=== PATIENT | male | born 2000 | race Caucasian/White ===

== ENCOUNTER 2021-09-16 21:53 | Inpatient (IN) ==
[2021-09-16] MEDS ORDERED: NS 1,000 ML IV 1,000 ML ONE ×2 (22:03→23:20)
[2021-09-16 22:13] VITALS: BMI 22.9
[2021-09-16] MEDS ORDERED: NS 1,000 ML IV 1,000 ML IV ONE ×2 (22:25→23:19)
[2021-09-16] MEDS ORDERED: ZOFRAN INJ 4 MG VIAL IVP ONE (22:29)
--- NOTE | 2021-09-16 22:33 | DR.HYPOGLY ---
HPI Time Seen Time Seen by Provider: 09/16/21 22:28 PCP Primary Care Physician: CHARTERTO Complaint Chief Complaint Doctors Comments: NAUSEA, VOMITING AND RAPID HEART RATE TIMES SEVERAL HOURS. POLYURIA AND POLYDYPSEA FOR FEW DAYS. NOT TAKING INSULIN INSTRUCTED AND OUT OF STRIPS TO CHECK GLUCOSE. MOM SAID PATIENT IS INCREASINGLY WEAK AND IS NOT HOLDING DOWN FLUID. Chief Complaint:: PT'S MOM STATES "HE IS IN DKA". STATES HE HAS BEEN VOMITING, CENTENO, AND HEART RACING. STATES HE DIDNT HAVE HIS STRIPS TO CHECK HIS BLOOD GLUC OSE. COVID-19 Coronavirus risk:travel/contact w/high risk person: No Has patient experienced Coronavirus symptoms: No Nurses notes reviewed Nurses Notes Review: Yes Source History Provided: Patient and Family Member Mode of Arrival Mode of Arrival: Ambulatory Timing Onset of Chief Complaint: 09/16/21 Came on: Suddenly Duration Duration: Constant Duration: Days Context Symptoms: Generalized weakness History of: Diabetes, Insulin use, Hypoglycemic episodes and Hyperglycemic episodes Prehospital care: None Associated signs and symptoms Associated signs and symptoms: Headache, Nausea and Vomiting Other History Other history: DM ON INSULIN. PMH PMH Past Medical History: Yes Past Medical History: Diabetes Past Medical History Comment: MYOCARDITIS Past Surgical History: Yes Surgical History: Tonsillectomy and Other Past Surgical History Comment: HEART CATH Family History History of Family Medical Conditions: No Social History Does any household member use tobacco: No Alcohol Use: None Do you use any recreational Drugs:: No Lives Where: Home Travel Risk Coronavirus risk:travel/contact w/high risk person: No Has patient experienced Coronavirus symptoms: No Infectious screening Have you traveled outside the country in the last 6 months?: No Isolation: Standard ROS Review of Systems Constitutional: Weakness and Fatigue; negative Fever Eyes: No Symptoms Reported and See HPI; negative Blurred Vision and Diplopia ENTM: No Symptoms Reported and See HPI; negative Nose Discharge and Nose Congestion Respiratoy: See HPI and Short of Breath; negative Moist Cough and Wheezing Cardiovascular: See HPI and Palpitations; negative Chest Pain Gastrointestinal/Abdominal: See HPI, Nausea and Vomiting; negative Abdominal Pain and Diarrhea Genitourinary: See HPI and Other (POLYURIA AND POLYDYPSEA.); negative Dysuria Neurological: See HPI and Weakness; negative Headache and Dizziness Musculoskeletal: See HPI and Muscle Pain Integumentary: See HPI and Dryness Hematologic/Lymphatic: No Symptoms Reported and See HPI; negative Easy Bruising Endocrine: See HPI, Increased Thirst and Increased Urine Psychiatric: No Symptoms Reported and See HPI All Other Systems: Reviewed and Negative PE Vital Signs Vitals: Temperature 97.9 F Pulse Rate 129 Respiratory Rate 16 Blood Pressure 128/71 O2 Sat by Pulse Oximetry 96 General Limitations: No Limitations General Appearance: Alert and In Distress (TACHYPNEA.) Eyes Eye exam: Normal Appearance and PERRL; negative Scleral Icterus and Conjunctival Injection Pupils: Regular, Round: Bilateral and Reactive: Bilateral Sclera/Conjunctival: Normal Inspection: Bilateral ENT ENT Exam: Normal Oropharynx, Normal External Ear Exam, Mucous Membranes Dry and TM's Normal Bilaterally Nose Exam: Normal Nose Exam Mouth Exam: Normal Inspection; negative Lip Swelling and Tongue Swelling Throat Exam: Normal Inspection; negative Tonsillar Erythema, Tonsillomegaly and Tonsillar Exudate Neck Neck Exam: Normal Inspection and Trachea Midline; negative Tenderness Chest Chest Inspection: Normal Inspection and Symmetric Chest Wall Rise; negative Tenderness Respiratory Respiratory Exam: Normal Lung Sounds Bilat; negative Accessory Muscle Use, Chest Wall Tenderness and Respiratory Distress Respiratory Exam: Bilateral: Clear to Auscultation Cardiovascular Cardiovascular Exam: Normal Rhythm and Tachycardia Abdominal Exam Abdominal Exam: Normal Inspection, Normal Bowel Sounds and Soft; negative Tenderness Extremities Extremities Exam: Normal Inspection and Normal Capillary Refill Back Back Exam: Normal Inspection; negative (R) CVA Tenderness and (L) CVA Tenderness Neurologic Neurological Exam: Alert and Oriented X3; negative Motor Sensory Deficit Patient Oriented To: Person, Place and Time Speech: Fluid Speech Cranial Nerve Exam: EOM Function (II, III, IV, ): Normal, Facial Sensation (V): Normal, Facial Palsy (VII): Normal, Gag reflex (XI): Normal and Tongue Deviation: Normal Motor Strength - LUE: 5/5 Motor Strength - RUE: 5/5 Motor Strength - LLE: 5/5 Motor Strength - RLE: 5/5 Upper Motor Neuron Exam: Babinski Sign: Normal Psychiatric Psychiatric Exam: Normal Affect and Anxious Skin Skin Exam: Dry MDM Additional information Additional Information Obtained From: Family Differential diagnosis Induced by: Insulin (HYPERGLYCEMIA, DKA, DEHYDRATION, ACIDOSIS.) COURSE Treatment Treatment: SEE ORDERS DONE WHILE PATIENT WAS IN ER. LABS, EKG AND XRAY DISCUSSED WITH PATIENT AND HIS FAMILY. WILL BE ADMITTED TO [facility]. Consultation Consultation Comments: DISCUSSED PATIENT WITH DR. BUSBY. HE WILL BE ADMITTED PATIENT. Education/Counseling Education/Counseling: Patient and Family Educated On: Diagnosis ROR Labs Reviewed Laboratory Results Reviewed?: Yes Result Diagrams: 09/20/21 04:07 09/20/21 04:07 Laboratory: WBC 15.2 X10^3/uL (3.6-10.0) H 09/16/21 22:41 RBC 5.83 X10^6/uL (4.7-6.0) 09/16/21 22:41 Hgb 16.7 g/dL (13.5-18.0) 09/16/21 22:41 Hct 50.1 % (42.0-54.0) 09/16/21 22:41 MCV 86.0 fL (80.0-100.0) 09/16/21 22:41 MCH 28.6 pg (27.0-34.0) 09/16/21 22:41 MCHC 33.2 g/dL (33.0-35.0) 09/16/21 22:41 RDW 12.9 % (11.6-16.5) 09/16/21 22:41 Plt Count 319 X10^3/uL (150.0-450.0) 09/16/21 22:41 MPV 8.8 fL (7.4-11.0) 09/16/21 22:41 Neut % (Auto) 89.9 % (42.0-75.0) H 09/16/21 22:41 Lymph % (Auto) 5.5 % (21.0-51.0) L 09/16/21 22:41 [place] % (Auto) 4.2 % (0.0-13.0) 09/16/21 22:41 Eos % (Auto) 0.1 % (0.9-2.9) L 09/16/21 22:41 Baso % (Auto) 0.3 % (0.2-1.0) 09/16/21 22:41 Neut # (Auto) 13.7 x10^3/uL (2.2-4.8) H 09/16/21 22:41 Lymph # (Auto) 0.8 X10^3/uL (1.3-2.9) L 09/16/21 22:41 [place] # (Auto) 0.6 x10^3/uL (0.3-0.8) 09/16/21 22:41 Eos # (Auto) 0.0 x10^3/uL (0.0-0.2) 09/16/21 22:41 Baso # (Auto) 0.0 X10^3/uL (0.0-0.1) 09/16/21 22:41 Absolute Nucleated RBC 0.0 /100WBC 09/16/21 22:41 Sodium 136 mmol/L (136-145) 09/16/21 22:41 Corrected Sodium 147 mmol/L (136-145) H 09/16/21 22:41 Potassium 5.1 mmol/L (3.5-5.1) 09/16/21 22:41 Chloride 98 mmol/L (98-107) 09/16/21 22:41 Carbon Dioxide 14.3 mmol/L (21-32) L* 09/16/21 22:41 BUN 22 mg/dL (7-18) H 09/16/21 22:41 Creatinine 1.25 mg/dL (0.70-1.30) 09/16/21 22:41 Est GFR (MDRD) Af Amer > 60 (>60) 09/16/21 22:41 Est GFR (MDRD) Non-Af > 60 (>60) 09/16/21 22:41 Glucose 539 mg/dL (65-99) H* 09/16/21 22:41 Calcium 9.9 mg/dL (8.5-10.1) 09/16/21 22:41 Corrected Calcium TNP 09/16/21 22:41 Total Bilirubin 1.00 mg/dL (0.2-1.0) 09/16/21 22:41 AST 14 Units/L (15-37) L 09/16/21 22:41 ALT 26 Units/L (12-78) 09/16/21 22:41 Alkaline Phosphatase 166 Units/L (46-116) H 09/16/21 22:41 Total Protein 8.4 g/dL (6.4-8.2) H 09/16/21 22:41 Albumin 4.9 g/dL (3.4-5.0) 09/16/21 22:41 Globulin 3.5 g/dL (2.5-4.5) 09/16/21 22:41 Albumin/Globulin Ratio 1.4 Ratio (1.1-2.1) 09/16/21 22:41 Acetone, Semi-Quant Large (NEGATIVE) H 09/16/21 22:41 XRAY XRAY Interpreted by: Radiologist (REPORT NOTED.) and Self EKG Rate: 114 [place]: Normal Rhythm: ST Block: None Hypertrophy: None ST: Inf and Ischemia Opioid Opioid Risk Tool Age (Efrain box if 16-45): Yes Total: 1 Total Score Risk Category: Low Risk Copyright: James CORREA predicting aberrant behaviors Diagnosis Discharge Problem: DKA (diabetic ketoacidosis) Qualifiers: Diabetes mellitus type: type 1 Diabetes mellitus complication detail: without coma Qualified Code(s): E10.10 - Type 1 diabetes mellitus with ketoacidosis without coma Instructions Instructions: Nausea and Vomiting, Adult, [id number] Diabetic Ketoacidosis Hemoglobin A1c Test Blood Glucose Monitoring, Adult Preventing Diabetic Ketoacidosis Diabetes Mellitus and Nutrition Forms: Excuse From Work or School Precautions for COVID19 [facility] Social Distancing
[2021-09-16] MEDS ORDERED: ZOFRAN INJ 4 MG VIAL ONE (22:42)
[2021-09-16 22:43] LABS: BASOPHILS % (AUTO) 0.3 % (0.2-1.0); EOSINOPHILS % (AUTO) 0.1 % (0.9-2.9); HEMATOCRIT 50.1 % (42.0-54.0); HEMOGLOBIN 16.7 g/dL (13.5-18.0); LYMPHOCYTES # (AUTO) 0.8 X10^3/uL (1.3-2.9); LYMPHOCYTES % (AUTO) 5.5 % (21.0-51.0); MEAN CORPUSCULAR HEMOGLOBIN 28.6 pg (27.0-34.0); MEAN CORPUSCULAR HGB CONC 33.2 g/dL (33.0-35.0); MEAN PLATELET VOLUME 8.8 fL (7.4-11.0); MONOCYTES # (AUTO) 0.6 x10^3/uL (0.3-0.8); MONOCYTES % (AUTO) 4.2 % (0.0-13.0); NEUTROPHILS # (AUTO) 13.7 x10^3/uL (2.2-4.8); NEUTROPHILS % (AUTO) 89.9 % (42.0-75.0); RED BLOOD COUNT 5.83 X10^6/uL (4.7-6.0); RED CELL DISTRIBUTION WIDTH 12.9 % (11.6-16.5); WHITE BLOOD COUNT 15.2 X10^3/uL (3.6-10.0)
[2021-09-16 22:56] LABS: SERUM ACETONE LARGE (NEGATIVE)
[2021-09-16 23:02] LABS: BLOOD UREA NITROGEN 22 mg/dL (7-18); CALCIUM 9.9 mg/dL (8.5-10.1); CHLORIDE 98 mmol/L (98-107); CREATININE 1.25 mg/dL (0.70-1.30); SODIUM 136 mmol/L (136-145); eGFR NON BLACK RACES > 60 (>60)
[2021-09-16 23:04] LABS: CARBON DIOXIDE 14.3 mmol/L (21-32); COR NA(FOR HYPERGLY) 147 mmol/L (136-145)
[2021-09-16 23:16] LABS: ALANINE AMINOTRANSFERASE 26 Units/L (12-78); ALBUMIN 4.9 g/dL (3.4-5.0); ALKALINE PHOSPHATASE 166 Units/L (46-116); ASPARTATE AMINO TRANSFERASE 14 Units/L (15-37); TOTAL PROTEIN 8.4 g/dL (6.4-8.2)
[2021-09-16] MEDS ORDERED: NovoLIN R (or HumuLIN R) IV ONE (23:41)
[2021-09-17] MEDS ORDERED: NS 1,000 ML IV 1,000 ML IV ONE (00:20)
[2021-09-17] MEDS ORDERED: NS 1,000 ML IV 1,000 ML ONE (00:21)
[2021-09-17] MEDS ORDERED: NovoLIN R (or HumuLIN R) ONE (00:23)
[2021-09-17 00:43] LABS: ABG ALLEN TEST POS; ABG HCO3 9.4 mmol/L (22-26)
[2021-09-17] MEDS ORDERED: MYXREDLIN 100 UNIT/100 ML BAG 100 UNIT/100 ML PLAST..BAG IV ONE (00:43)
[2021-09-17 00:46] LABS: BILIRUBIN,URINE NEGATIVE (NEGATIVE); BLOOD/HEMOGLOBIN,URINE NEGATIVE (NEGATIVE); GLUCOSE, URINE 4+ (NEGATIVE); KETONES,URINE 4+ (NEGATIVE); LEUKOCYTE ESTERASE ,URINE NEGATIVE (NEGATIVE); NITRITES,URINE NEGATIVE (NEGATIVE); PROTEIN,URINE NEGATIVE (NEGATIVE); UROBILINOGEN,URINE NORMAL (NORMAL)
[2021-09-17 00:47] LABS: APPEARANCE,URINE CLEAR (CLEAR); COLOR,URINE STRAW (YELLOW)
[2021-09-17] MEDS ORDERED: SODIUM BICARBONATE 8.4% INJ ADULT IVP ONE ×2 (00:57→01:00)
[2021-09-17] MEDS ORDERED: TORADOL 30 MG VIAL ONE (01:03)
[2021-09-17] MEDS ORDERED: SODIUM BICARBONATE 8.4% INJ ADULT ONE (01:03)
[2021-09-17] MEDS ORDERED: TORADOL 30 MG VIAL IVP ONE (01:19)
[2021-09-17] MEDS: MYXREDLIN 100 UNIT/100 ML BAG 100 UNIT/100 ML PLAST..BAG IV PRN (01:50)
[2021-09-17] MEDS ORDERED: NS 1,000 ML IV 1,000 ML IV SCH (02:00)
--- NOTE | 2021-09-17 02:11 | RAD ---
HISTORYDKA DMSTUDYCHEST, 1 VIEWCOMPARISONNoneFINDINGSThe trachea is midline. The cardiac silhouette is unremarkable. The lungs are clear without focal infiltrate or effusion. The bony thorax is unremarkable.IMPRESSIONNormal chest.Electronically signed by: Mark Borjas (September 17, 2021 02:10:10)
[2021-09-17 02:16] LABS: BLOOD UREA NITROGEN 20 mg/dL (7-18); CALCIUM 8.2 mg/dL (8.5-10.1); CHLORIDE 107 mmol/L (98-107); COR NA(FOR HYPERGLY) 148 mmol/L (136-145); SODIUM 143 mmol/L (136-145); eGFR NON BLACK RACES > 60 (>60)
[2021-09-17 02:19] LABS: CARBON DIOXIDE 14.7 mmol/L (21-32)
[2021-09-17 02:28] LABS: CKMB % 1.6 % (<4); CREATINE KINASE 64 Units/L (39-308); CREATINE KINASE MB < 1.0 ng/mL (0-4.0)
[2021-09-17] MEDS: OTBSDRIP XX SCH ×22 (02:50→23:50)
[2021-09-17] MEDS: NS + KCL 20 MEQ/L 1,000 ML IV SCH ×5 (03:20→23:30)
[2021-09-17] MEDS ORDERED: NS + KCL 20 MEQ/L 1,000 ML IV ONE ×2 (03:23→10:27)
[2021-09-17 05:11] LABS: BASOPHILS # (AUTO) 0.1 X10^3/uL (0.0-0.1); BASOPHILS % (AUTO) 0.3 % (0.2-1.0); EOSINOPHILS # (AUTO) 0.1 x10^3/uL (0.0-0.2); EOSINOPHILS % (AUTO) 0.3 % (0.9-2.9); HEMATOCRIT 42.1 % (42.0-54.0); LYMPHOCYTES # (AUTO) 1.8 X10^3/uL (1.3-2.9); MEAN CORPUSCULAR HEMOGLOBIN 28.2 pg (27.0-34.0); MEAN CORPUSCULAR HGB CONC 33.5 g/dL (33.0-35.0); MEAN CORPUSCULAR VOLUME 84.2 fL (80.0-100.0); MEAN PLATELET VOLUME 7.6 fL (7.4-11.0); MONOCYTES # (AUTO) 0.9 x10^3/uL (0.3-0.8); NEUTROPHILS # (AUTO) 12.2 x10^3/uL (2.2-4.8); NEUTROPHILS % (AUTO) 81.4 % (42.0-75.0); RED CELL DISTRIBUTION WIDTH 13.1 % (11.6-16.5)
[2021-09-17 05:29] LABS: ALANINE AMINOTRANSFERASE 19 Units/L (12-78); ALBUMIN 3.5 g/dL (3.4-5.0); ALKALINE PHOSPHATASE 112 Units/L (46-116); ASPARTATE AMINO TRANSFERASE 11 Units/L (15-37); BLOOD UREA NITROGEN 18 mg/dL (7-18); CALCIUM 8.3 mg/dL (8.5-10.1); CARBON DIOXIDE 17.6 mmol/L (21-32); CHLORIDE 109 mmol/L (98-107); COR NA(FOR HYPERGLY) 144 mmol/L (136-145); CREATININE 0.94 mg/dL (0.70-1.30); SODIUM 142 mmol/L (136-145); TOTAL PROTEIN 6.4 g/dL (6.4-8.2); eGFR NON BLACK RACES > 60 (>60)
[2021-09-17 05:42] LABS: HEMOGLOBIN 14.1 g/dL (13.5-18.0)
[2021-09-17 09:42] LABS: ABG ALLEN TEST POS; ABG BASE EXCESS -4.7 mmol/L (-2.0-2.0); ABG HCO3 20.4 mmol/L (22-26)
[2021-09-17 09:51] LABS: BLOOD UREA NITROGEN 17 mg/dL (7-18); CALCIUM 8.6 mg/dL (8.5-10.1); CARBON DIOXIDE 19.1 mmol/L (21-32); CHLORIDE 107 mmol/L (98-107); COR NA(FOR HYPERGLY) 144 mmol/L (136-145); CREATININE 0.91 mg/dL (0.70-1.30); SODIUM 140 mmol/L (136-145); eGFR NON BLACK RACES > 60 (>60)
--- NOTE | 2021-09-17 11:45 | DR.H&P ---
H&P - History & Physical for Day of: H&P Date: 09/17/21 - Chief Complaint Chief Complaint: NV, ELEVATED BLOOD SUGAR - History of Present Illness History of Present Illness: HE HAS BEEN VOMITING, CENTENO, AND HEART RACING. STATES HE DIDNT HAVE HIS STRIPS TO CHECK HIS BLOOD GLUCOSE. PT IS KNOWN TYPE I DM. MOTHER REPORTS "HES IN DKA" PT ALSO HAS PMH OF [place]ERG[place]. PT ADMITTED TO ICU FOR TREATMENT OF ACUTE ILLNESS. - Past Medical History Past Medical History: Diabetes Additional Medical History: ASPERGERS SYNDROME - Past Surgical History Surgical History: Angioplasty/Stents, Tonsillectomy - Family History Family Medical History: Diabetes Mellitus, Cancer - Social History Does patient currently use any type of tobacco product: No Have you used tobacco products in the last 12 months: No Type of Tobacco Use: None Does any household member use tobacco: No Alcohol Use: None Drug Use: Prescription Drugs - Medications Home Medications: No Known Drug Allergies Allergy (Verified 09/16/21 22:14) - Review of Systems Constitutional: Weakness, Malaise Eyes: No Symptoms Reported ENT: No Symptoms Reported Respiratory: No Symptoms Reported Cardiovascular: No Symptoms Reported Gastrointestinal: Nausea, Vomiting Genitourinary: Frequency Musculoskeletal: No Symptoms Reported Skin: No Symptoms Reported Neurological: Weakness - Physical Exam Vital Signs: Temperature 98.4 F Pulse Rate 105 Respiratory Rate 19 Blood Pressure 107/50 O2 Sat by Pulse Oximetry 97 Oriented: Normal Eyes: Normal Ear: Normal Nose: Normal Throat: Dry Respiratory: Clear Throughout Cardiovascular: Tachycardia : Normal Auscultation: Bowel Sounds: Normal Palpation: Normal Tenderness: Normal Skin: Decreased [place]urgur (MILD) Musculoskeletal: Normal Mood Description: Calm Speech Pattern: Clear, Appropriate - Assessment/Plan (1) DKA (diabetic ketoacidosis) Status: Acute Plan: ADMIT, IV HYDRATION, STRICT I&OS. INSULIN DRIP PER PROTOCOL, FSBS PER INSULIN PROTOCOL. BP AND CARDIAC MONITORING. REPEAT AM ACETONE. ABG ON ADMISSION, CXR ON ADMISSION. VERIFY HOME MEDICATION, NAUSEA CONTROL - Allergies Allergies/Adverse Reactions: Allergies Allergy/AdvReac Type Severity Reaction Status Date / Time No Known Drug Allergies Allergy Verified 09/16/21 22:14
[2021-09-17 13:49] LABS: BLOOD UREA NITROGEN 15 mg/dL (7-18); CALCIUM 8.2 mg/dL (8.5-10.1); CARBON DIOXIDE 16.8 mmol/L (21-32); CHLORIDE 104 mmol/L (98-107); COR NA(FOR HYPERGLY) 141 mmol/L (136-145); CREATININE 0.88 mg/dL (0.70-1.30); SODIUM 137 mmol/L (136-145); eGFR NON BLACK RACES > 60 (>60)
[2021-09-17 17:25] LABS: ABG BASE EXCESS -1.1 mmol/L (-2.0-2.0); ABG HCO3 23.5 mmol/L (22-26)
[2021-09-17 17:26] LABS: ABG ALLEN TEST POS
[2021-09-17 17:58] LABS: BLOOD UREA NITROGEN 16 mg/dL (7-18); CALCIUM 8.2 mg/dL (8.5-10.1); CARBON DIOXIDE 23.3 mmol/L (21-32); CHLORIDE 106 mmol/L (98-107); COR NA(FOR HYPERGLY) 142 mmol/L (136-145); CREATININE 0.93 mg/dL (0.70-1.30); SODIUM 139 mmol/L (136-145); eGFR NON BLACK RACES > 60 (>60)
[2021-09-17] MEDS: SNACK - Diabetic Appropriate PO SCH (20:28)
[2021-09-18] MEDS: OTBSDRIP XX SCH ×24 (00:50→23:52)
[2021-09-18] MEDS: NS + KCL 20 MEQ/L 1,000 ML IV SCH ×4 (04:13→21:04)
[2021-09-18 04:47] LABS: BASOPHILS # (AUTO) 0.1 X10^3/uL (0.0-0.1); BASOPHILS % (AUTO) 0.8 % (0.2-1.0); EOSINOPHILS # (AUTO) 0.2 x10^3/uL (0.0-0.2); EOSINOPHILS % (AUTO) 2.2 % (0.9-2.9); HEMATOCRIT 39.9 % (42.0-54.0); HEMOGLOBIN 13.6 g/dL (13.5-18.0); LYMPHOCYTES # (AUTO) 2.4 X10^3/uL (1.3-2.9); LYMPHOCYTES % (AUTO) 33.7 % (21.0-51.0); MEAN CORPUSCULAR HEMOGLOBIN 28.7 pg (27.0-34.0); MEAN CORPUSCULAR VOLUME 84.5 fL (80.0-100.0); MEAN PLATELET VOLUME 7.7 fL (7.4-11.0); MONOCYTES # (AUTO) 0.4 x10^3/uL (0.3-0.8); MONOCYTES % (AUTO) 5.6 % (0.0-13.0); NEUTROPHILS # (AUTO) 4.1 x10^3/uL (2.2-4.8); NEUTROPHILS % (AUTO) 57.7 % (42.0-75.0); RED BLOOD COUNT 4.72 X10^6/uL (4.7-6.0); RED CELL DISTRIBUTION WIDTH 13.3 % (11.6-16.5); WHITE BLOOD COUNT 7.2 X10^3/uL (3.6-10.0)
[2021-09-18] MEDS: MYXREDLIN 100 UNIT/100 ML BAG 100 UNIT/100 ML PLAST..BAG IV PRN (04:49)
[2021-09-18 04:56] LABS: BLOOD UREA NITROGEN 8 mg/dL (7-18); CALCIUM 7.9 mg/dL (8.5-10.1); CARBON DIOXIDE 23.6 mmol/L (21-32); CHLORIDE 105 mmol/L (98-107); COR NA(FOR HYPERGLY) 140 mmol/L (136-145); CREATININE 0.65 mg/dL (0.70-1.30); SODIUM 139 mmol/L (136-145); eGFR NON BLACK RACES > 60 (>60)
[2021-09-18 05:08] LABS: SERUM ACETONE SMALL (NEGATIVE)
[2021-09-18] MEDS: SNACK - Diabetic Appropriate PO SCH (21:04)
[2021-09-19] MEDS: OTBSDRIP XX SCH ×17 (00:50→17:27)
[2021-09-19] MEDS: NS + KCL 20 MEQ/L 1,000 ML IV SCH ×3 (03:48→22:15)
[2021-09-19 04:15] LABS: BASOPHILS % (AUTO) 0.7 % (0.2-1.0); EOSINOPHILS # (AUTO) 0.1 x10^3/uL (0.0-0.2); EOSINOPHILS % (AUTO) 2.1 % (0.9-2.9); HEMATOCRIT 43.9 % (42.0-54.0); LYMPHOCYTES # (AUTO) 2.6 X10^3/uL (1.3-2.9); LYMPHOCYTES % (AUTO) 40.8 % (21.0-51.0); MEAN CORPUSCULAR HEMOGLOBIN 28.4 pg (27.0-34.0); MEAN CORPUSCULAR HGB CONC 34.2 g/dL (33.0-35.0); MEAN PLATELET VOLUME 7.9 fL (7.4-11.0); MONOCYTES # (AUTO) 0.5 x10^3/uL (0.3-0.8); MONOCYTES % (AUTO) 7.4 % (0.0-13.0); NEUTROPHILS # (AUTO) 3.1 x10^3/uL (2.2-4.8); RED BLOOD COUNT 5.28 X10^6/uL (4.7-6.0); RED CELL DISTRIBUTION WIDTH 12.8 % (11.6-16.5); WHITE BLOOD COUNT 6.3 X10^3/uL (3.6-10.0)
[2021-09-19 04:35] LABS: ALANINE AMINOTRANSFERASE 21 Units/L (12-78); ALBUMIN 3.6 g/dL (3.4-5.0); ALKALINE PHOSPHATASE 104 Units/L (46-116); ASPARTATE AMINO TRANSFERASE 21 Units/L (15-37); BLOOD UREA NITROGEN 7 mg/dL (7-18); CALCIUM 8.8 mg/dL (8.5-10.1); CARBON DIOXIDE 24.4 mmol/L (21-32); CHLORIDE 101 mmol/L (98-107); COR NA(FOR HYPERGLY) 138 mmol/L (136-145); CREATININE 0.54 mg/dL (0.70-1.30); SODIUM 137 mmol/L (136-145); TOTAL PROTEIN 6.8 g/dL (6.4-8.2); eGFR NON BLACK RACES > 60 (>60)
--- NOTE | 2021-09-19 15:15 | PCM.PROG ---
Progress Note - Progress Note for Day of Date of Exam: 09/18/21 - Subjective Subjective: Patient was admitted as per HPI. Patient's nausea has improved. FSBS improved. Tolerating diet. Patient is on a Dexcon device for DM at home prescribed by sweet pickled fruit maker. Patient has had issues with device not working and has yet to resolved these issues. Mother is communicating with dexcom company and sweet pickled fruit maker to resolve issues. No other concerns at present. - Past Medical Family Social History Past Med/Fam/Surg Hx: No changes since H&P Allergies: Allergies No Known Drug Allergies Allergy (Verified 09/16/21 22:14) - Review of Systems ROS: No change since H&P - Vital Signs and I&O's Vital Signs: Temperature 98.5 F Pulse Rate 87 Respiratory Rate 22 Blood Pressure 128/66 O2 Sat by Pulse Oximetry 98 Intake and Output: Intake & Output 09/16/21 09/17/21 09/18/21 09/19/21 23:59 23:59 23:59 23:59 Intake Total 4320 / 4320 4577 / 4577 593 / 593 Output Total 4200 / 4200 4925 / 4925 500 / 500 Balance 120 / 120 -348 / -348 93 / 93 - Physical Exam Oriented: Normal Eyes: Normal Ear: Normal Nose: Normal Throat: Normal Respiratory: Normal Cardiovascular: Tachycardia : Normal Auscultation: Bowel Sounds: Normal Palpation: Normal Tenderness: Normal Skin: Decreased [place]urgur (MILD) Musculoskeletal: Normal Psychiatric: Normal Mood Description: Calm Affect: Normal Speech Pattern: Clear, Appropriate - Laboratory and Diagnostics Result Diagrams: 09/19/21 03:18 09/19/21 03:18 Labs: 09/17/21 01:15 Blood Blood Culture - Preliminary 09/17/21 00:34 Blood Blood Culture - Preliminary Laboratory WBC 6.3 X10^3/uL (3.6-10.0) 09/19/21 03:18 RBC 5.28 X10^6/uL (4.7-6.0) 09/19/21 03:18 Hgb 15.0 g/dL (13.5-18.0) 09/19/21 03:18 Hct 43.9 % (42.0-54.0) 09/19/21 03:18 MCV 83.0 fL (80.0-100.0) 09/19/21 03:18 MCH 28.4 pg (27.0-34.0) 09/19/21 03:18 MCHC 34.2 g/dL (33.0-35.0) 09/19/21 03:18 RDW 12.8 % (11.6-16.5) 09/19/21 03:18 Plt Count 260 X10^3/uL (150.0-450.0) 09/19/21 03:18 MPV 7.9 fL (7.4-11.0) 09/19/21 03:18 Neut % (Auto) 49.0 % (42.0-75.0) 09/19/21 03:18 Lymph % (Auto) 40.8 % (21.0-51.0) 09/19/21 03:18 [place] % (Auto) 7.4 % (0.0-13.0) 09/19/21 03:18 Eos % (Auto) 2.1 % (0.9-2.9) 09/19/21 03:18 Baso % (Auto) 0.7 % (0.2-1.0) 09/19/21 03:18 Neut # (Auto) 3.1 x10^3/uL (2.2-4.8) 09/19/21 03:18 Lymph # (Auto) 2.6 X10^3/uL (1.3-2.9) 09/19/21 03:18 [place] # (Auto) 0.5 x10^3/uL (0.3-0.8) 09/19/21 03:18 Eos # (Auto) 0.1 x10^3/uL (0.0-0.2) 09/19/21 03:18 Baso # (Auto) 0.0 X10^3/uL (0.0-0.1) 09/19/21 03:18 Absolute Nucleated RBC 0.1 /100WBC 09/19/21 03:18 Sample Site Lr 09/17/21 17:20 ABG pH 7.400 (7.35-7.45) 09/17/21 17:20 ABG pCO2 38.0 mmHg (35.0-45.0) 09/17/21 17:20 ABG pO2 94.0 mmHg (80.0-100.0) 09/17/21 17:20 ABG HCO3 23.5 mmol/L (22-26) 09/17/21 17:20 ABG O2 Saturation 97.0 % (90-100) 09/17/21 17:20 ABG Base Excess -1.1 mmol/L (-2.0-2.0) 09/17/21 17:20 Fidel Test Pos 09/17/21 17:20 A-a Gradient 8.0 mmHg 09/17/21 17:20 FiO2 21.0 09/17/21 17:20 Blood Gas Comments [place] well cb 09/17/21 17:20 Sodium 137 mmol/L (136-145) 09/19/21 03:18 Corrected Sodium 138 mmol/L (136-145) 09/19/21 03:18 Potassium 3.6 mmol/L (3.5-5.1) 09/19/21 03:18 Chloride 101 mmol/L (98-107) 09/19/21 03:18 Carbon Dioxide 24.4 mmol/L (21-32) 09/19/21 03:18 BUN 7 mg/dL (7-18) 09/19/21 03:18 Creatinine 0.54 mg/dL (0.70-1.30) L 09/19/21 03:18 Est GFR (MDRD) Af Amer > 60 (>60) 09/19/21 03:18 Est GFR (MDRD) Non-Af > 60 (>60) 09/19/21 03:18 Glucose 125 mg/dL (65-99) H 09/19/21 03:18 POC Glucose (mg/dL) 161 mg/dL (65-99) H 09/19/21 14:10 Hemoglobin A1c 10.5 % 09/18/21 04:20 Calcium 8.8 mg/dL (8.5-10.1) 09/19/21 03:18 Corrected Calcium TNP 09/19/21 03:18 Total Bilirubin 0.60 mg/dL (0.2-1.0) 09/19/21 03:18 AST 21 Units/L (15-37) 09/19/21 03:18 ALT 21 Units/L (12-78) 09/19/21 03:18 Alkaline Phosphatase 104 Units/L (46-116) 09/19/21 03:18 Creatine Kinase 64 Units/L (39-308) 09/17/21 02:00 CK-MB (CK-2) < 1.0 ng/mL (0-4.0) 09/17/21 02:00 CK/CKMB % Calc 1.6 % (<4) 09/17/21 02:00 Troponin I High Sens 9.2 ng/L (4.0-60.0) 09/17/21 02:00 Total Protein 6.8 g/dL (6.4-8.2) 09/19/21 03:18 Albumin 3.6 g/dL (3.4-5.0) 09/19/21 03:18 Globulin 3.2 g/dL (2.5-4.5) 09/19/21 03:18 Albumin/Globulin Ratio 1.1 Ratio (1.1-2.1) 09/19/21 03:18 Specimen Type Clean catch urine 09/17/21 00:42 Urine Color Straw (YELLOW) 09/17/21 00:42 Urine Appearance Clear (CLEAR) 09/17/21 00:42 Urine pH 5.0 (5.0 - 8.0) 09/17/21 00:42 Ur Specific [place] 1.020 (1.000-1.030) 09/17/21 00:42 Urine Protein Negative (NEGATIVE) 09/17/21 00:42 Urine Glucose (UA) 4+ (NEGATIVE) 09/17/21 00:42 Urine Ketones 4+ (NEGATIVE) 09/17/21 00:42 Urine Blood Negative (NEGATIVE) 09/17/21 00:42 Urine Nitrite Negative (NEGATIVE) 09/17/21 00:42 Urine Bilirubin Negative (NEGATIVE) 09/17/21 00:42 Urine Urobilinogen Normal (NORMAL) 09/17/21 00:42 Ur Leukocyte Esterase Negative (NEGATIVE) 09/17/21 00:42 Acetone, Semi-Quant Small (NEGATIVE) H 09/19/21 03:18 SARS-CoV-2 (PCR) Negative (NEGATIVE) 09/17/21 00:28 - Plan (1) Hyperglycemia due to type 1 diabetes mellitus Status: Acute (2) Nausea Status: Acute (3) DKA (diabetic ketoacidosis) Status: Acute Plan: IV HYDRATION, STRICT I&OS. INSULIN DRIP PER PROTOCOL, FSBS PER INSULIN PROTOCOL. BP AND CARDIAC MONITORING. REPEAT AM ACETONE. NAUSEA CONTROL
--- NOTE | 2021-09-19 15:20 | PCM.PROG ---
Progress Note - Subjective Subjective: Patient was admitted as per HPI. Patient's nausea has resolved. FSBS improved. Continues to require insulin drip. Adding long acting insulin until arrangements are made with [employer] system. Tolerating diet. Continuing to work with specimen boss and [employer]. - Past Medical Family Social History Past Med/Fam/Surg Hx: No changes since H&P Allergies: Allergies No Known Drug Allergies Allergy (Verified 09/16/21 22:14) - Review of Systems ROS: No change since H&P - Vital Signs and I&O's Vital Signs: Temperature 98.5 F Pulse Rate 87 Respiratory Rate 22 Blood Pressure 128/66 O2 Sat by Pulse Oximetry 98 Intake and Output: Intake & Output 09/16/21 09/17/21 09/18/21 09/19/21 23:59 23:59 23:59 23:59 Intake Total 4320 / 4320 4577 / 4577 593 / 593 Output Total 4200 / 4200 4925 / 4925 500 / 500 Balance 120 / 120 -348 / -348 93 / 93 - Physical Exam Oriented: Normal Eyes: Normal Ear: Normal Nose: Normal Throat: Normal Respiratory: Normal Cardiovascular: Tachycardia : Normal Auscultation: Bowel Sounds: Normal Tenderness: Normal Skin: Normal Musculoskeletal: Normal Psychiatric: Normal Mood Description: Calm Affect: Normal Speech Pattern: Clear, Appropriate - Laboratory and Diagnostics Result Diagrams: 09/19/21 03:18 09/19/21 03:18 Labs: 09/17/21 01:15 Blood Blood Culture - Preliminary 09/17/21 00:34 Blood Blood Culture - Preliminary Laboratory WBC 6.3 X10^3/uL (3.6-10.0) 09/19/21 03:18 RBC 5.28 X10^6/uL (4.7-6.0) 09/19/21 03:18 Hgb 15.0 g/dL (13.5-18.0) 09/19/21 03:18 Hct 43.9 % (42.0-54.0) 09/19/21 03:18 MCV 83.0 fL (80.0-100.0) 09/19/21 03:18 MCH 28.4 pg (27.0-34.0) 09/19/21 03:18 MCHC 34.2 g/dL (33.0-35.0) 09/19/21 03:18 RDW 12.8 % (11.6-16.5) 09/19/21 03:18 Plt Count 260 X10^3/uL (150.0-450.0) 09/19/21 03:18 MPV 7.9 fL (7.4-11.0) 09/19/21 03:18 Neut % (Auto) 49.0 % (42.0-75.0) 09/19/21 03:18 Lymph % (Auto) 40.8 % (21.0-51.0) 09/19/21 03:18 [place] % (Auto) 7.4 % (0.0-13.0) 09/19/21 03:18 Eos % (Auto) 2.1 % (0.9-2.9) 09/19/21 03:18 Baso % (Auto) 0.7 % (0.2-1.0) 09/19/21 03:18 Neut # (Auto) 3.1 x10^3/uL (2.2-4.8) 09/19/21 03:18 Lymph # (Auto) 2.6 X10^3/uL (1.3-2.9) 09/19/21 03:18 [place] # (Auto) 0.5 x10^3/uL (0.3-0.8) 09/19/21 03:18 Eos # (Auto) 0.1 x10^3/uL (0.0-0.2) 09/19/21 03:18 Baso # (Auto) 0.0 X10^3/uL (0.0-0.1) 09/19/21 03:18 Absolute Nucleated RBC 0.1 /100WBC 09/19/21 03:18 Sample Site Lr 09/17/21 17:20 ABG pH 7.400 (7.35-7.45) 09/17/21 17:20 ABG pCO2 38.0 mmHg (35.0-45.0) 09/17/21 17:20 ABG pO2 94.0 mmHg (80.0-100.0) 09/17/21 17:20 ABG HCO3 23.5 mmol/L (22-26) 09/17/21 17:20 ABG O2 Saturation 97.0 % (90-100) 09/17/21 17:20 ABG Base Excess -1.1 mmol/L (-2.0-2.0) 09/17/21 17:20 Fidel Test Pos 09/17/21 17:20 A-a Gradient 8.0 mmHg 09/17/21 17:20 FiO2 21.0 09/17/21 17:20 Blood Gas Comments Catalina well cb 09/17/21 17:20 Sodium 137 mmol/L (136-145) 09/19/21 03:18 Corrected Sodium 138 mmol/L (136-145) 09/19/21 03:18 Potassium 3.6 mmol/L (3.5-5.1) 09/19/21 03:18 Chloride 101 mmol/L (98-107) 09/19/21 03:18 Carbon Dioxide 24.4 mmol/L (21-32) 09/19/21 03:18 BUN 7 mg/dL (7-18) 09/19/21 03:18 Creatinine 0.54 mg/dL (0.70-1.30) L 09/19/21 03:18 Est GFR (MDRD) Af Amer > 60 (>60) 09/19/21 03:18 Est GFR (MDRD) Non-Af > 60 (>60) 09/19/21 03:18 Glucose 125 mg/dL (65-99) H 09/19/21 03:18 POC Glucose (mg/dL) 161 mg/dL (65-99) H 09/19/21 14:10 Hemoglobin A1c 10.5 % 09/18/21 04:20 Calcium 8.8 mg/dL (8.5-10.1) 09/19/21 03:18 Corrected Calcium TNP 09/19/21 03:18 Total Bilirubin 0.60 mg/dL (0.2-1.0) 09/19/21 03:18 AST 21 Units/L (15-37) 09/19/21 03:18 ALT 21 Units/L (12-78) 09/19/21 03:18 Alkaline Phosphatase 104 Units/L (46-116) 09/19/21 03:18 Creatine Kinase 64 Units/L (39-308) 09/17/21 02:00 CK-MB (CK-2) < 1.0 ng/mL (0-4.0) 09/17/21 02:00 CK/CKMB % Calc 1.6 % (<4) 09/17/21 02:00 Troponin I High Sens 9.2 ng/L (4.0-60.0) 09/17/21 02:00 Total Protein 6.8 g/dL (6.4-8.2) 09/19/21 03:18 Albumin 3.6 g/dL (3.4-5.0) 09/19/21 03:18 Globulin 3.2 g/dL (2.5-4.5) 09/19/21 03:18 Albumin/Globulin Ratio 1.1 Ratio (1.1-2.1) 09/19/21 03:18 Specimen Type Clean catch urine 09/17/21 00:42 Urine Color Straw (YELLOW) 09/17/21 00:42 Urine Appearance Clear (CLEAR) 09/17/21 00:42 Urine pH 5.0 (5.0 - 8.0) 09/17/21 00:42 Ur Specific [place] 1.020 (1.000-1.030) 09/17/21 00:42 Urine Protein Negative (NEGATIVE) 09/17/21 00:42 Urine Glucose (UA) 4+ (NEGATIVE) 09/17/21 00:42 Urine Ketones 4+ (NEGATIVE) 09/17/21 00:42 Urine Blood Negative (NEGATIVE) 09/17/21 00:42 Urine Nitrite Negative (NEGATIVE) 09/17/21 00:42 Urine Bilirubin Negative (NEGATIVE) 09/17/21 00:42 Urine Urobilinogen Normal (NORMAL) 09/17/21 00:42 Ur Leukocyte Esterase Negative (NEGATIVE) 09/17/21 00:42 Acetone, Semi-Quant Small (NEGATIVE) H 09/19/21 03:18 SARS-CoV-2 (PCR) Negative (NEGATIVE) 09/17/21 00:28 - Plan (1) Hyperglycemia due to type 1 diabetes mellitus Status: Acute Plan: D/c insulin drip. Add Lantus 20 units q day; continue SS insulin (2) Nausea Status: Acute (3) DKA (diabetic ketoacidosis) Status: Acute Plan: IV HYDRATION, STRICT I&OS. INSULIN DRIP PER PROTOCOL, FSBS PER INSULIN PROTOCOL. BP AND CARDIAC MONITORING. REPEAT AM ACETONE. NAUSEA CONTROL
[2021-09-19] MEDS ORDERED: SNACK - Diabetic Appropriate PO SCH ×2 (20:00)
[2021-09-19] MEDS: NovoLIN R (or HumuLIN R) SUBCUT PRN (20:27)
[2021-09-20 04:41] LABS: MEAN PLATELET VOLUME 7.9 fL (7.4-11.0); WHITE BLOOD COUNT 5.9 X10^3/uL (3.6-10.0)
[2021-09-20 04:47] LABS: BASOPHILS % (AUTO) 0.6 % (0.2-1.0); EOSINOPHILS # (AUTO) 0.2 x10^3/uL (0.0-0.2); EOSINOPHILS % (AUTO) 2.9 % (0.9-2.9); HEMATOCRIT 45.6 % (42.0-54.0); HEMOGLOBIN 15.7 g/dL (13.5-18.0); LYMPHOCYTES # (AUTO) 2.3 X10^3/uL (1.3-2.9); MEAN CORPUSCULAR HEMOGLOBIN 28.5 pg (27.0-34.0); MEAN CORPUSCULAR HGB CONC 34.3 g/dL (33.0-35.0); MEAN CORPUSCULAR VOLUME 82.9 fL (80.0-100.0); MONOCYTES # (AUTO) 0.4 x10^3/uL (0.3-0.8); MONOCYTES % (AUTO) 7.6 % (0.0-13.0); NEUTROPHILS # (AUTO) 2.9 x10^3/uL (2.2-4.8); NEUTROPHILS % (AUTO) 48.9 % (42.0-75.0); RED CELL DISTRIBUTION WIDTH 12.7 % (11.6-16.5)
[2021-09-20 05:01] LABS: ALANINE AMINOTRANSFERASE 25 Units/L (12-78); ALBUMIN 3.8 g/dL (3.4-5.0); ALKALINE PHOSPHATASE 109 Units/L (46-116); ASPARTATE AMINO TRANSFERASE 17 Units/L (15-37); BLOOD UREA NITROGEN 11 mg/dL (7-18); CARBON DIOXIDE 26.4 mmol/L (21-32); CHLORIDE 99 mmol/L (98-107); COR NA(FOR HYPERGLY) 138 mmol/L (136-145); CREATININE 0.65 mg/dL (0.70-1.30); SODIUM 135 mmol/L (136-145); TOTAL PROTEIN 6.9 g/dL (6.4-8.2); eGFR NON BLACK RACES > 60 (>60)
[2021-09-20] MEDS: NS + KCL 20 MEQ/L 1,000 ML IV SCH (05:51)
[2021-09-20] MEDS: NovoLIN R (or HumuLIN R) SUBCUT PRN ×2 (05:53→11:03)
[2021-09-20 06:07] VITALS: BP 130/62
[2021-09-20] MEDS ORDERED: LANTUS SC SCH (09:00)
--- NOTE | 2021-10-05 14:57 | PCM.DCPLAN ---
Discharge Plan - Discharge Plan Hospital Course: Admit date 09/17/21 Discharge date 09/20/21 DOS 09/20/21 Admit Diagnosis DKA Discharge Diagnosis(1) Hyperglycemia due to type 1 diabetes mellitus (2) Nausea (3) DKA (diabetic ketoacidosis) Hospital Course PATIENT IS A 21 YEAR OLD MALE WHO WAS ADMITTED DUE TO DKA, NAUSEA, AND VOMITING. PATIENT WAS TREATED WITH IV FLUIDS AND INSULIN. Patient is on a Dexcon device for DM at home prescribed by snow technician. Patient has had issues with device not working and has yet to resolve these issues. Mother is communicating with [employer] and snow technician to resolve issues. PT ALSO HAS PMH OF SONALI. MOTHER WORKING WITH [employer] AND [employer] TO RESOLVE ISSUES. GLUCOSE IMPROVED. PATIENT WAS DISCHARGED HOME WITH LONG ACTING INSULIN UNTIL HE CAN FOLLOW UP WITH [employer] AND GET DEXCOM SYSTEM RESOLVED. SEE LABS AND IMAGING AND [facility] REC FOR FURTHER DETAILS. PATIENT TOLERATING FOOD AND FLUIDS. Greater than 35 mins spent on discharge. Disposition: 01 HOME, SELF-CARE Condition: Stable Health Concerns: Post Hospitalization: new medications and changes needed to prevent readmission or further decline. Pt educated and given instructions on all concerns. Care Plan Goals: Problem: Altered nutrition Goal: Nutrition deficit will be minimized or prevented. Instructions: Follow provided instructions. Follow up with primary physician as directed. Contact primary care physician or report to the closest Emergency Room if condition worsens. Plan of Treatment: Continue with present treatment and follow up plan. Pt is to keep follow up appointment as instructed and take medications as ordered. Assessment: Stable no acute distress noted at discharge. Prescriptions: New Humulin R Regular U-100 Insuln 100 unit/mL Solution 1 sliding scale dose SUBCUT USEASDIRECTD Qty: 1 RF: 0 Transmission Status: Received by [facility] [id number] Lantus U-100 Insulin 100 unit/mL Solution 20 unit SUBCUT DAILY 30 Days RF: 0 - Follow ups/Referrals Follow ups/Referrals: Dhaval Cason [REFERRING] - 09/20/21 1:05 pm (Mother to make follow up appointment.) - Instructions Instructions: Nausea and Vomiting, Adult, Oafs-vm-Myac, Diabetic Ketoacidosis, Hemoglobin A1c Test, Blood Glucose Monitoring, Adult, Preventing Diabetic Ketoacidosis, Diabetes Mellitus and Nutrition Additional Instructions: Monitor blood glucose before meals and at bedtime with Insulin sliding scale coverage. Copy of Sliding scale given in discharge packet. Forms: Excuse From Work or School, Precautions for COVID19, [facility], Patient Portal, Social Distancing Print Language: ANGOLAN
== END 2021-09-20 14:20 | disposition home or self-care (01) | DRG 639 ==
LOC: ER 21:56 → ICU 09-17 00:21
PROVIDERS: ADMIT Internal Medicine; ATTEND Internal Medicine
DX: E10.10 Type 1 diabetes mellitus with ketoacidosis without coma; R00.0 Tachycardia, unspecified; R94.31 Abnormal electrocardiogram [ECG] [EKG]; Z20.822 Contact with and (suspected) exposure to COVID-19; E86.0 Dehydration; R11.2 Nausea with vomiting, unspecified; R51.9 Headache, unspecified; Z79.4 Long term (current) use of insulin